=== PATIENT | female | born 1965 | race Caucasian/White ===

== ENCOUNTER → 2018-03-21 | Outpatient (CLI) | payer OTHER | LOC: M.RAD 03-20 14:10 | DX: Z12.31 Encounter for screening mammogram for malignant neoplasm of breast (principal) ==

== ENCOUNTER 2019-03-21 10:43 | Emergency (ER) | payer OTHER ==
[~2019-03-21] VITALS: Ht 157.5 cm; Wt 86.2 kg
[2019-03-21] MEDS ORDERED: PRINIVIL20 MG PO (11:14)
[2019-03-21] MEDS ORDERED: GLUCOTROL5 MG PO (11:15)
[2019-03-21] MEDS ORDERED: METFORMIN HCL500 MG PO (11:15)
[2019-03-21 11:42] LABS: ABSOLUTE BASOPHILS 0.1 thou/uL (0.0-0.2); ABSOLUTE EOSINOPHILS 0.1 thou/uL (0.0-0.7); ABSOLUTE LYMPHOCYTES 1.7 thou/uL (0.8-5.3); ABSOLUTE MONOCYTES 0.3 thou/uL (0.0-1.2); ABSOLUTE NEUTROPHILS 5.6 thou/uL (1.6-8.1); BASOPHILS 0.9 %; EOSINOPHILS 1.3 %; HEMATOCRIT 40.7 % (37.0-47.0); HEMOGLOBIN 13.6 gm/dL (12.0-15.0); LYMPHOCYTES 21.1 %; MCH 28.6 pg (26.0-34.0); MCHC 33.5 g/dL (28.0-37.0); MCV 85.5 fL (80.0-100.0); MONOCYTES 4.4 %; MPV 9.1 fl. (7.2-11.1); NUCLEATED RBCS 0 /100WBC; PLATELET COUNT* 219 thou/uL (150-400); POLYS 72.3 %; RBC 4.76 mil/uL (4.20-5.00); RDW-CV 14.5 % (10.5-14.5); WBC 7.8 thou/uL (4.0-11.0)
[2019-03-21 11:54] LABS: CALCIUM 8.9 mg/dL (8.5-10.1); CREATININE 0.7 mg/dL (0.6-1.3); POTASSIUM 4.2 mmol/L (3.5-5.1)
[2019-03-21 11:59] LABS: ALBUMIN 3.5 g/dL (3.4-5.0); TOTAL BILIRUBIN 0.5 mg/dL (<0.1-1.0); TOTAL PROTEIN 7.7 g/dL (6.4-8.2)
[2019-03-21 12:43] LABS: URINE BILIRUBIN NEGATIVE (Negative); URINE BLOOD NEGATIVE (Negative); URINE CLARITY CLEAR; URINE COLOR YELLOW; URINE GLUCOSE-RANDOM TRACE (Negative); URINE KETONES 1+ (Negative); URINE LEUKOCYTES-REFLEX TRACE (Negative); URINE NITRITE-REFLEX NEGATIVE (Negative); URINE PROTEIN NEGATIVE (Negative); URINE SPECIFIC GRAVITY 1.015 (1.005-1.030); URINE UROBILINOGEN 0.2 E.U./dl (0.2-1.0)
[2019-03-21 12:48] LABS: BACTERIA-REFLEX 1-9 Few /HPF (None Seen); CASTS None Seen /LPF (None Seen); CRYSTALS None Seen /LPF (None Seen); MUCUS None Seen strn/LPF (None Seen); SQUAMOUS 4-10 Moderate /LPF (0-3); URINE RBC 0-2 Rare /HPF (0-2); URINE WBC-REFLEX 0-5 Rare /HPF (0-5)
[2019-03-21 12:55] LABS: INFLUENZA A ANTIGEN Negative (Negative); INFLUENZA B ANTIGEN Negative (Negative)
[2019-03-21] MEDS ORDERED: ONDANSETRON ODT4 MG PO (13:30)
[2019-03-21 13:46] VITALS: BP 129/74
== END 2019-03-21 13:52 | disposition home or self-care (01) ==
LOC: M.ERS 10:43
PROVIDERS: Physician Assistant
DX: R11.2 Nausea with vomiting, unspecified (principal); R51 Headache; I10 Essential (primary) hypertension; E11.9 Type 2 diabetes mellitus without complications

== ENCOUNTER → 2019-04-17 | Outpatient (CLI) | payer OTHER ==
[~2019-04-17] MED LIST: GLUCOTROL5 MG PO; METFORMIN HCL500 MG PO; ONDANSETRON ODT4 MG PO; PRINIVIL20 MG PO
[2019-04-17 12:02] LABS: URINE BILIRUBIN NEGATIVE (Negative); URINE BLOOD 1+ (Negative); URINE CLARITY CLEAR; URINE COLOR YELLOW; URINE GLUCOSE-RANDOM 2+ (Negative); URINE KETONES NEGATIVE (Negative); URINE LEUKOCYTES TRACE (Negative); URINE NITRITE NEGATIVE (Negative); URINE PROTEIN NEGATIVE (Negative); URINE SPECIFIC GRAVITY 1.025 (1.005-1.030); URINE UROBILINOGEN 0.2 E.U./dl (0.2-1.0)
[2019-04-17 12:17] LABS: SQUAMOUS 4-10 Moderate /LPF (0-3)
[2019-04-17 12:18] LABS: URINE RBC 3-10 Few /HPF (0-2); URINE WBC 6-15 Few /HPF (0-5)
[2019-04-17 12:19] LABS: BACTERIA 1-9 Few /HPF (None Seen); MUCUS 0-3 Light strn/LPF (None Seen)
[2019-04-17 12:20] LABS: CASTS None Seen /LPF (None Seen); CRYSTALS None Seen /LPF (None Seen)
[2019-04-17 23:08] LABS: GLYCOHEMOGLOBIN (HGB A1C) 10.3 % (4.8-5.6)
== END ==
LOC: M.LAB 11:44
PROVIDERS: Internal Medicine
DX: E11.9 Type 2 diabetes mellitus without complications (principal); N30.00 Acute cystitis without hematuria

== ENCOUNTER → 2019-07-10 | Outpatient (CLI) | payer OTHER ==
[2019-07-10 14:01] LABS: URINE BILIRUBIN NEGATIVE (Negative); URINE BLOOD NEGATIVE (Negative); URINE CLARITY CLEAR; URINE COLOR YELLOW; URINE GLUCOSE-RANDOM 2+ (Negative); URINE KETONES NEGATIVE (Negative); URINE LEUKOCYTES-REFLEX NEGATIVE (Negative); URINE NITRITE-REFLEX NEGATIVE (Negative); URINE PROTEIN NEGATIVE (Negative); URINE UROBILINOGEN 0.2 E.U./dl (0.2-1.0)
== END ==
LOC: M.LAB 13:39
PROVIDERS: Internal Medicine
DX: M54.9 Dorsalgia, unspecified (principal)

== ENCOUNTER → 2019-10-31 | Outpatient (CLI) | payer OTHER ==
[2019-10-31 07:24] LABS: ABSOLUTE BASOPHILS 0.1 thou/uL (0.0-0.2); ABSOLUTE EOSINOPHILS 0.3 thou/uL (0.0-0.7); ABSOLUTE LYMPHOCYTES 1.9 thou/uL (0.8-5.3); ABSOLUTE MONOCYTES 0.5 thou/uL (0.0-1.2); ABSOLUTE NEUTROPHILS 4.6 thou/uL (1.6-8.1); BASOPHILS 1.2 %; EOSINOPHILS 4.3 %; HEMOGLOBIN 14.3 gm/dL (12.0-15.0); MCH 28.3 pg (26.0-34.0); MCHC 33.3 g/dL (28.0-37.0); MONOCYTES 6.6 %; MPV 9.2 fl. (7.2-11.1); NUCLEATED RBCS 0 /100WBC; PLATELET COUNT* 249 thou/uL (150-400); POLYS 61.9 %; RBC 5.06 mil/uL (4.20-5.00); RDW-CV 15.2 % (10.5-14.5); WBC 7.4 thou/uL (4.0-11.0)
[2019-10-31 07:38] LABS: ALBUMIN 3.7 g/dL (3.4-5.0); ALKALINE PHOSPHATASE 89 U/L (46-116); ANION GAP 8 mmol/L (7-16); BUN 13 mg/dL (7-18); CALCIUM 8.9 mg/dL (8.5-10.1); CHLORIDE 102 mmol/L (98-107); CHOLESTEROL 159 mg/dL (<200); CO2 27 mmol/L (21-32); CREATININE 0.8 mg/dL (0.6-1.3); GLUCOSE 138 mg/dL (70-99); HDL CHOLESTEROL 39 mg/dL (>40); LDL CHOLESTEROL 94 mg/dL (<100); POTASSIUM 4.5 mmol/L (3.5-5.1); SERUM ASSESSMENT Clear; SGOT 24 U/L (15-37); SGPT 41 U/L (30-65); SODIUM 137 mmol/L (136-145); TC:HDL 4.1 Ratio (Not establshd); TOTAL BILIRUBIN 0.6 mg/dL (<0.1-1.0); TOTAL PROTEIN 7.7 g/dL (6.4-8.2); TRIGLYCERIDE 130 mg/dL (<150); VLDL 26 mg/dL (<40)
[2019-11-01 02:07] LABS: GLYCOHEMOGLOBIN (HGB A1C) 7.1 % (4.8-5.6)
== END ==
LOC: M.LAB 06:46
PROVIDERS: Internal Medicine
DX: E11.65 Type 2 diabetes mellitus with hyperglycemia (principal); I10 Essential (primary) hypertension

== ENCOUNTER → 2020-02-01 | Outpatient (CLI) | payer OTHER | LOC: M.RAD 12:09 | PROVIDERS: ATTEND Nurse Practitioner Family | DX: M17.12 Unilateral primary osteoarthritis, left knee (principal); M85.88 Other specified disorders of bone density and structure, other site; M79.89 Other specified soft tissue disorders; Y99.0 Civilian activity done for income or pay; W19.XXXD Unspecified fall, subsequent encounter; X58.XXXA Exposure to other specified factors, initial encounter; Y93.89 Activity, other specified ==

== ENCOUNTER 2020-06-06 10:56 | Emergency (ER) | payer OTHER ==
[~2020-06-06] VITALS: Ht 157.5 cm; Wt 86.2 kg
[2020-06-06] MEDS ORDERED: ACYCLOVIR 400400 MG PO (11:46)
[2020-06-06] MEDS ORDERED: LIDOCAINE35.44 GM TOP (11:46)
[2020-06-06] MEDS ORDERED: NORCO 5-325 TA1 EAC2 PO (11:46)
[2020-06-06 12:09] VITALS: BP 150/80
== END 2020-06-06 12:09 | disposition home or self-care (01) ==
LOC: M.ERS 10:56
DX: L98.499 Non-pressure chronic ulcer of skin of other sites with unspecified severity (principal); I10 Essential (primary) hypertension; E11.9 Type 2 diabetes mellitus without complications

== ENCOUNTER → 2020-08-14 | Outpatient (CLI) | payer OTHER ==
[~2020-08-14] MED LIST changes: +ACYCLOVIR 400400 MG PO; +LIDOCAINE35.44 GM TOP; +NORCO 5-325 TA1 EAC2 PO
[2020-08-14 08:46] LABS: CALCIUM 9.3 mg/dL (8.5-10.1); CREATININE 0.7 mg/dL (0.6-1.3); POTASSIUM 4.5 mmol/L (3.5-5.1)
[2020-08-15 05:14] LABS: GLYCOHEMOGLOBIN (HGB A1C) 7.1
== END ==
LOC: M.LAB 08:21
PROVIDERS: ATTEND Internal Medicine
DX: E11.9 Type 2 diabetes mellitus without complications (principal); I10 Essential (primary) hypertension